=== PATIENT | male | born 1955 ===

== ENCOUNTER 2018-03-30 10:15 | Outpatient (CLI) | payer OTHER ==
[~2018-03-30] VITALS: Ht 172.7 cm; Wt 83.9 kg
== END 2018-03-30 10:30 | disposition home or self-care (01) ==
LOC: OFIC 805 10:15
DX: H92.01 Otalgia, right ear (principal)

== ENCOUNTER 2021-08-30 06:00 | Day surgery (SDC) | payer OTHER | END 2021-08-30 10:10 | disposition home or self-care (01) | LOC: CIR.AMB 06:00 | PROVIDERS: ATTEND Colon & Rectal Surgery | DX: D12.4 Benign neoplasm of descending colon (principal); K64.1 Second degree hemorrhoids ==